=== PATIENT | male | born 1975 | race Caucasian/White ===

== ENCOUNTER 2019-11-26 22:34 | Emergency (ER) | payer OTHER ==
--- NOTE | 2019-11-26 23:33 | EDM.PDOC ---
ED HPI GENERAL MEDICAL PROBLEM - General Chief Complaint: Chest Pain Stated Complaint: CHEST PAIN LEFT SIDE Time Seen by Provider: 11/26/19 23:04 Source of Information: Reports: Patient History Limitations: Reports: No Limitations - History of Present Illness INITIAL COMMENTS - FREE TEXT/NARRATIVE: Mr. Stephens is a very pleasant 44-year-old man with a past medical history significant for hypertension, dyslipidemia, PFT-proven asthma and COPD, PCD, diabetes, and untreated anxiety and depression, who now presents to the ED stating that he developed sudden onset left-sided chest pain, heavy in character , a pain, not a discomfort, around 22:00 this evening. The pain is made worse if he coughs. It radiates to his left shoulder and down his left upper extremity to the elbow, although in his left upper extremity, pain is more sharp in character. The pain does not radiate elsewhere. He states that he has chronic dyspnea and wheezing due to his asthma and COPD, and he feels that he is wheezing even now. He has had slight nausea with his pain, but no vomiting. He also reports that he felt clammy around 22:15 this evening, along with slight anxiety and fatigue. The patient states that he took 2 nitroglycerin tablets around 22:20, which did not improve his pain, but caused it to "level off" and not get any worse. Here in the ED, the patient is found to be hemodynamically stable, afebrile, saturating 94% on room air. Medical records finds that the patient is been seen in this ED only once before , on 03/19/2019, for chest pain that began several hours prior to arrival. At that time, his pain was substernal and crushing/pressure in character, radiating to his left shoulder and the base of his neck. Work-up included a CBC , CMP, troponin, coags, chest x-ray, and ECG. His ECG demonstrated ST depressions in V2 and V3, but was otherwise unremarkable. His CBC was remarkable for a WBC count mildly elevated at 11.76, but was otherwise unremarkable. His CMP, coags, and chest x-ray were all unremarkable. His troponin was undetectably low. Because of the ST depressions on his ECG, admission to the hospital was offered, but declined. He was discharged home with a prescription for nitroglycerin tablets, and instructed to follow-up as an outpatient for a cardiac stress test. The patient tells me that he did in fact undergo an outpatient cardiac stress test (he does not recall exactly when) that was negative. The patient also tells me that he has taken the sublingual nitroglycerin on numerous occasions for a variety of chest pains, and that he in fact has only 2 tablets remaining. The patient's PCP is Dr. Golden Tobias. His Lead Software Tester is Dr. Tasha Verdin, at [facility]. He did not receive an influenza vaccine this season, but agreed to receive one here tonight. Treatments [employer]: Reports: Nitroglycerin, Other (see below) Left Chest Pain Score (Numeric/FACES): 7 - Related Data Allergies Allergy/AdvReac Type Severity Reaction Status Date / Time aspirin Allergy Hives Verified 11/26/19 22:40 Home Meds: Home Meds Albuterol [Ventolin HFA] 1 puff INH Q6H 03/19/19 [History] Fluticasone Propionate [Flovent HFA 110 MCG] 2 puff INH BID 03/19/19 [History] Losartan/Hydrochlorothiazide [Losartan-HCTZ 100-12.5 MG] 1 tab PO DAILY [History] Multivitamin [Multivitamins] 1 tab PO DAILY 03/19/19 [History] Nitroglycerin [Nitrostat] 0.4 mg SL ASDIRECTED PRN #1 tab.subl 03/19/19 [Rx] atorvaSTATin [Lipitor] 10 mg PO BEDTIME 03/19/19 [History] metFORMIN [Glucophage XR] 1,000 mg PO BIDMEALS 03/19/19 [History] Orphenadrine [Norflex] 1 tab PO Q12H PRN #14 tab.er 11/27/19 [Rx] Past Medical History Cardiovascular History: Reports: High Cholesterol, Hypertension Respiratory History: Reports: Asthma (PFT-proven), COPD (PFT-proven), Sleep Apnea Gastrointestinal History: Reports: Diverticulosis (diverticulitis), GERD Psychiatric History: Reports: Anxiety (untreated), Depression (untreated) Endocrine/Metabolic History: Reports: Diabetes, Type II, Obesity/BMI 30+ - Past Surgical History GI Surgical History: Reports: Cholecystectomy (around 2011), Colonoscopy (x 2), Hernia, Abdominal, Hernia, Inguinal (bilateral) Male Surgical History: Reports: Vasectomy Musculoskeletal Surgical History: Reports: Arthroscopic Knee (left, x 2, right x 1), Other (See Below) (Right forearm debridement) Social & Family History - Tobacco Use Smoking Status *Q: Current Every Day Smoker Years of Tobacco use: 34 Packs/Tins Daily: 1 Packs/Tins Daily Comment: Down from 3 ppd - Caffeine Use Caffeine Use: Reports: Coffee - Alcohol Use Alcohol Use History: Yes Alcohol Use Frequency: Socially (occasionally to excess) - Recreational Drug Use Recreational Drug Use: Yes Drug Use in Last 12 Months: No Recreational Drug Type: Reports: Cocaine (last snorted, smoked 2004), Marijuana/ Hashish (last smoked 1999), Methamphetamine (last snorted, smoked 2014) - Living Situation & Occupation Living situation: Reports: , with Spouse, with Family (3 kids) Occupation: Employed ([employer]) ED ROS GENERAL - Review of Systems Review Of Systems: Comprehensive ROS is negative, except as noted in HPI. ED EXAM, GENERAL - Physical Exam Exam: See Below Exam Limited By: No Limitations General Appearance: Alert, WD/WN, No Apparent Distress Eye Exam: Bilateral Eye: EOMI, Normal Inspection Ears: Normal External Exam, Hearing Grossly Normal Nose: Normal Inspection Throat/Mouth: Normal Inspection, Normal Lips, Normal Voice, No Airway Compromise Head: Atraumatic, Normocephalic Neck: Normal Inspection, Full Range of Motion Respiratory/Chest: No Respiratory Distress, Lungs Clear, Normal Breath Sounds, No Accessory Muscle Use, Other (Reproducible chest pain to palpation of the patient's left pectoralis muscle, just left of the sternum. This is same pain is induced with the patient pressing his hands together with his arms outstretched in front of his chest, or by him crossing his left upper extremity across his chest.). No: Decreased Breath Sounds, Crackles, Rhonchi, Wheezing, Stridor, Prolonged Expiration Cardiovascular: Normal Peripheral Pulses, Regular Rate, Rhythm, No Gallop, No JVD, No Murmur, No Rub Peripheral Pulses: 4+: Radial (L), Radial (R) GI/Abdominal: Normal Bowel Sounds, Soft, Non-Tender, No Organomegaly, No Distention, No Abnormal Bruit, No Mass (Male) Exam: Deferred Rectal (Males) Exam: Deferred Back Exam: Normal Inspection, Full Range of Motion, NT Extremities: Normal Inspection, Normal Range of Motion, No Pedal Edema, Normal Capillary Refill Neurological: Alert, Oriented, Normal Cognition, No Motor/Sensory Deficits Psychiatric: Normal Affect Skin Exam: Warm, Dry, Intact, Normal Color, No Rash EKG INTERPRETATION EKG Date: 11/27/19 Time: 22:39 Rhythm: NSR Rate (Beats/Min): 75 [place]: Normal P-Wave: Present QRS: Normal ST-T: Normal QT: Normal Comparison: No Change (03/19/2019) Course - Vital Signs Last Recorded V/S: Last Vital Signs Temp 36.1 C 11/26/19 22:41 Pulse 86 11/26/19 22:41 Resp 14 11/26/19 22:41 BP 128/91 H 11/26/19 22:41 Pulse Ox 94 L 11/26/19 22:41 - Orders/Labs/Meds Orders: Active Orders 24 hr Category Date Time Status EKG Documentation Completion [RC] ASDIRECTED Care 11/26/19 22:44 Active EKG 12 Lead [EK] Stat Ther 11/26/19 22:44 Ordered Labs: Laboratory Tests 11/26/19 11/26/19 Range/Units 22:45 22:45 WBC 14.74 H (4.23-9.07) K/mm3 RBC 4.32 L (4.63-6.08) M/mm3 Hgb 13.9 (13.7-17.5) gm/dl Hct 40.3 (40.1-51.0) % MCV 93.3 H (79.0-92.2) fl MCH 32.2 (25.7-32.2) pg MCHC 34.5 (32.2-35.5) g/dl RDW Std Deviation 45.1 H (35.1-43.9) fL Plt Count 256 (163-337) K/mm3 MPV 9.6 (9.4-12.3) fl Neut % (Auto) 62.1 (34.0-67.9) % Lymph % (Auto) 26.2 (21.8-53.1) % Sebastian % (Auto) 10.4 (5.3-12.2) % Eos % (Auto) 0.9 (0.8-7.0) Baso % (Auto) 0.1 (0.1-1.2) % Neut # (Auto) 9.16 H (1.78-5.38) K/mm3 Lymph # (Auto) 3.86 H (1.32-3.57) K/mm3 Sebastian # (Auto) 1.53 H (0.30-0.82) K/mm3 Eos # (Auto) 0.14 (0.04-0.54) K/mm3 Baso # (Auto) 0.01 (0.01-0.08) K/mm3 Manual Slide Review Abnormal smear Sodium 140 (136-145) mEq/L Potassium 3.5 (3.5-5.1) mEq/L Chloride 103 (98-107) mEq/L Carbon Dioxide 27 (21-32) mEq/L Anion Gap 13.5 (5-15) BUN 18 (7-18) mg/dL Creatinine 1.0 (0.7-1.3) mg/dL Est Cr Clr Drug Dosing 93.28 mL/min Estimated GFR (MDRD) > 60 (>60) mL/min BUN/Creatinine Ratio 18.0 (14-18) Glucose 115 H (74-106) mg/dL Calcium 9.4 (8.5-10.1) mg/dL Total Bilirubin 0.3 (0.2-1.0) mg/dL AST 16 (15-37) U/L ALT 41 (16-63) U/L Alkaline Phosphatase 141 H (46-116) U/L Troponin I < 0.017 (0.00-0.056) ng/mL Total Protein 7.3 (6.4-8.2) g/dl Albumin 4.1 (3.4-5.0) g/dl Globulin 3.2 gm/dL Albumin/Globulin Ratio 1.3 (1-2) Meds: Medications Discontinued Medications Generic Name Dose Route Start Last Admin Trade Name Freq PRN Reason Stop Dose Admin Orphenadrine Citrate 100 mg 11/27/19 00:06 11/27/19 00:16 Norflex PO 11/27/19 00:07 100 mg ONETIME STA Administration - Re-Assessments/Exams Free Text/Narrative Re-Assessment/Exam: 11/26/19 23:30 While the patient is certainly at risk for CAD, his history is not very convincing that his pain is cardiac in etiology, and his physical exam strongly suggests a musculoskeletal etiology. His ECG, obtained at triage, is grossly unremarkable. A negative cardiac stress test within the past year is reassuring , as well. A work-up has been ordered that includes a CBC, CMP, and troponin. For safety, I will likely recommend a second troponin to be drawn at 02:00, 4 hours after the onset of his symptoms. 11/27/19 00:06 Test results discussed with the patient. His CBC is remarkable for WBC count elevated at 14.74, but with 0% bandemia, and the remainder of his CBC being unremarkable. His CMP is remarkable for a blood glucose slightly elevated at 115, and is otherwise unremarkable. His troponin is undetectably low. I offered to perform a second troponin at 02:00, but the patient declined. For today's purposes, I will treat the patient for a left pectoralis muscle strain with Norflex, and submit a prescription for the same. Departure - Departure Time of Disposition: 00:08 Disposition: Home, Self-Care 01 Condition: Good Clinical Impression: Musculoskeletal chest pain - Discharge Information *PRESCRIPTION DRUG MONITORING PROGRAM REVIEWED*: Not Applicable *COPY OF PRESCRIPTION DRUG MONITORING REPORT IN PATIENT ABBEY: Not Applicable Prescriptions: Orphenadrine [Norflex] 1 tab PO Q12H PRN #14 tab.er PRN Reason: Muscle Spasm Instructions: Nonspecific Chest Pain, Adult, [id number] Referrals: Golden Tobias Jr, MD [Primary Care Provider] - Tasha Verdin MD [Ordering Only Provider] - Forms: ED Department Discharge Additional Instructions: You were seen in the emergency room left sided chest pain which radiated down your left arm, along with shortness of breath, some nausea, feeling clammy, and slightly anxious and fatigued. Work-up in the ER included blood work and an ECG, all of which were unremarkable. Additional testing was offered, but declined. Based on your history, physical exam, and ER tests, your chest pain is most likely due to a left pectoralis muscle strain or spasm. You have not suffered a heart attack. You have been started on the muscle relaxant Norflex, and a prescription for Norflex has been sent to the [facility], located at [address] . Take 1 tablet of Norflex every 12 hours, as prescribed. Norflex works well with ibuprofen. We recommend 3 tablets (600 mg) every 8 hours, with food, as needed for discomfort. Follow-up with your PCP, Dr. Golden Tobias, as needed. If any other problems, please do not hesitate to return to the ER. Sepsis Event Note - Evaluation Sepsis Screening Result: No Definite Risk - Focused Exam Vital Signs: Vital Signs Temp Pulse Resp BP Pulse Ox 11/26/19 22:41 36.1 C 86 14 128/91 H 94 L Date Exam was Performed: 11/27/19 Time Exam was Performed: 01:13 - My Orders Last 24 Hours: My Active Orders 11/26/19 22:44 EKG Documentation Completion [RC] ASDIRECTED EKG 12 Lead [EK] Stat - Assessment/Plan Last 24 Hours: My Active Orders 11/26/19 22:44 EKG Documentation Completion [RC] ASDIRECTED EKG 12 Lead [EK] Stat
[2019-11-27] MEDS ORDERED: Orphenadrine 100 MG Tab.ER PO STA (00:06)
== END 2019-11-27 00:21 | disposition home or self-care (01) ==
LOC: JD.ED 22:34
DX: R07.89 Other chest pain (principal); I10 Essential (primary) hypertension; E78.00 Pure hypercholesterolemia, unspecified; J44.9 Chronic obstructive pulmonary disease, unspecified; F41.9 Anxiety disorder, unspecified; F32.9 Major depressive disorder, single episode, unspecified; E11.9 Type 2 diabetes mellitus without complications; E66.9 Obesity, unspecified; Z68.35 Body mass index [BMI] 35.0-35.9, adult; F17.210 Nicotine dependence, cigarettes, uncomplicated; Z88.8 Allergy status to other drugs, medicaments and biological substances; Z79.84 Long term (current) use of oral hypoglycemic drugs; Z79.899 Other long term (current) drug therapy
CPT/HCPCS: 36415; 80053; 84484; 85025; 93005; 99285; A9270; 93010; 99283